=== PATIENT | female | born 1940 | race Caucasian/White ===

== ENCOUNTER 2018-01-02 20:16 | Emergency (ER) | payer MEDICARE, OTHER | END 2018-01-03 00:22 | disposition home or self-care (01) | LOC: FTE 01-03 00:22 | DX: M25.551 Pain in right hip (principal); M79.605 Pain in left leg; M79.604 Pain in right leg; I10 Essential (primary) hypertension; I25.10 Atherosclerotic heart disease of native coronary artery without angina pectoris; Z79.01 Long term (current) use of anticoagulants | CPT/HCPCS: 73502; 73510; 93970; 99284-25 ==

== ENCOUNTER 2018-06-21 09:01 | Emergency (ER) | payer MEDICARE, OTHER ==
[2018-06-21] MEDS: KETOROLAC 30 MG INJ IM (10:49)
== END 2018-06-21 10:58 | disposition home or self-care (01) ==
LOC: E/R 09:01
DX: M25.551 Pain in right hip (principal); M16.11 Unilateral primary osteoarthritis, right hip; S76.211A Strain of adductor muscle, fascia and tendon of right thigh, initial encounter; I10 Essential (primary) hypertension; I25.10 Atherosclerotic heart disease of native coronary artery without angina pectoris; X58.XXXA Exposure to other specified factors, initial encounter; Y92.9 Unspecified place or not applicable; Z79.01 Long term (current) use of anticoagulants; Z79.84 Long term (current) use of oral hypoglycemic drugs
CPT/HCPCS: 96372; 99284-25

== ENCOUNTER 2018-12-20 10:20 | Emergency (ER) | payer MEDICARE, OTHER ==
[2018-12-20] MEDS: HYDROCODONE/APAP (5/325) TAB PO (12:06)
[2018-12-20] MEDS: ONDANSETRON (ODT) 4 MG TAB ODT (12:07)
== END 2018-12-20 13:15 | disposition home or self-care (01) ==
LOC: FTE 10:20
DX: M25.551 Pain in right hip (principal); I10 Essential (primary) hypertension; I25.10 Atherosclerotic heart disease of native coronary artery without angina pectoris; Z79.84 Long term (current) use of oral hypoglycemic drugs
CPT/HCPCS: 73510; 99283-25

== ENCOUNTER 2018-12-22 09:32 | Inpatient (IN) | payer MEDICARE, OTHER ==
[2018-12-22 10:35] LABS: ADD MAN DIFF? NO
[2018-12-22] MEDS: morphine 4 MG/ML VIAL IV (10:35)
[2018-12-22] MEDS: SOD CHLORIDE 0.9% 1,000 ML IV (10:35)
[2018-12-22] MEDS: ONDANSETRON 4 MG INJ IV (10:35)
[2018-12-22 10:37] LABS: WHITE BLOOD COUNT 7.1 10^3/ul (4.8-10.8)
[2018-12-22 10:37] LABS: BASOPHILS % 0.6 % (0.0-2.0); EOSINOPHILS # 0.1 10^3/ul (0.0-0.5); EOSINOPHILS % 0.7 % (0.0-7.0); HEMOGLOBIN 12.3 g/dl (12.0-16.0); LYMPHOCYTES # 1.2 10^3/ul (0.8-2.9); LYMPHOCYTES % 16.8 % (15.0-51.0); MEAN CORPUSCULAR HEMOGLOBIN 30.2 pg (29.0-33.0); MEAN CORPUSCULAR HGB CONC 30.8 g/dl (32.0-37.0); MEAN CORPUSCULAR VOLUME 98.3 fl (82.0-101.0); MEAN PLATELET VOLUME 8.7 fl (7.4-10.4); MONOCYTE # 0.7 10^3/ul (0.3-0.9); MONOCYTES % 10.3 % (0.0-11.0); NEUTROPHILS % 70.8 % (39.0-77.0); PLATELET COUNT 216 10^3/UL (140-415); RED BLOOD COUNT 4.07 10^6/ul (4.20-5.40); RED CELL DISTRIBUTION WIDTH 15.1 % (11.5-14.5)
[2018-12-22 10:56] LABS: ANION GAP 6 (5-13); BLOOD UREA NITROGEN 22 mg/dl (7-20); CALCIUM 9.7 mg/dl (8.4-10.2); CARBON DIOXIDE 29 mmol/L (21-31); CHLORIDE 102 mmol/L (97-110); CREATININE 0.49 mg/dl (0.44-1.00); GLUCOSE 90 mg/dl (70-220); POTASSIUM 4.1 mmol/L (3.5-5.1); SODIUM 137 mmol/L (135-144)
[2018-12-22 10:58] LABS: INR 0.92; PARTIAL THROMBOPLASTIN TIME 35.4 Sec (23.0-35.0); PROTIME 12.5 Sec (11.9-14.9)
[2018-12-22 11:01] LABS: D-DIMER 1538.31 ng/ml (<460)
[2018-12-22 11:07] LABS: TROPONIN-I < 0.012 ng/ml (0.000-0.120)
[2018-12-22] MEDS: SOD CHLORIDE 0.9% 100 ML (12:08)
[2018-12-22] MEDS: HYDROmorphONE 0.5 MG/0.5 ML SYG IV (12:09)
[2018-12-22] MEDS: IOHEXOL 100 ML (12:09)
[2018-12-22] MEDS ORDERED: ONDANSETRON 4 MG INJ IV ×2 (14:30→15:30)
[2018-12-22] MEDS: ACETAMINOPHEN 325 MG TAB PO (14:38)
[2018-12-22] MEDS ORDERED: DOCUSATE SODIUM 100 MG CAP PO (15:30)
[2018-12-22] MEDS ORDERED: morphine 2 MG INJ IV (15:30)
[2018-12-22] MEDS ORDERED: ACETAMINOPHEN 325 MG TAB PO (15:30)
[2018-12-22] MEDS ORDERED: HYDROCODONE/APAP (5/325) TAB PO (15:30)
[2018-12-22] MEDS ORDERED: NITROGLYCERIN (SL) 0.4 MG TAB SL (15:30)
[2018-12-22] MEDS ORDERED: NACL 0.9% 3 ML SYG IV (15:30)
[2018-12-22] MEDS ORDERED: MAGNESIUM HYDROXIDE 30ML CUP PO (15:30)
[2018-12-22 15:37] LABS: HEMOGLOBIN A1C 5.6 % (0-5.9)
[2018-12-22] MEDS ORDERED: DEXTROSE 50% 50 ML SYRINGE IV ×2 (16:30)
[2018-12-22] MEDS ORDERED: GLUCAGON 1 MG INJ IM (16:30)
[2018-12-22] MEDS ORDERED: hydrALAzine 20 MG INJ IV (16:30)
[2018-12-22] MEDS ORDERED: GLUCOSE GEL 15 GRAM TUBE PO ×2 (16:30)
[2018-12-22] MEDS ORDERED: GLUCOSE GEL 15 GRAM TUBE BUCCAL (16:30)
[2018-12-22 17:30] LABS: CREATINE KINASE 57 IU/L (23-200)
[2018-12-22 17:43] LABS: CK INDEX 2.3; TROPONIN-I < 0.012 ng/ml (0.000-0.120)
[2018-12-22] MEDS: FAMOTIDINE 20 MG TAB PO (17:46)
[2018-12-22] MEDS: INSULIN ASPART [NOVOLOG] 3 ML PEN SC ×2 (17:46→21:00)
[2018-12-22] MEDS: HEPARIN 5,000 UNIT/1 ML VIAL SC (21:44)
[2018-12-22 23:01] LABS: CREATINE KINASE 58 IU/L (23-200)
[2018-12-22 23:14] LABS: CK INDEX 2.3; CK-MB 1.34 ng/ml (0.0-2.4); TROPONIN-I < 0.012 ng/ml (0.000-0.120)
[2018-12-23] MEDS: HYDROCODONE/APAP (5/325) TAB PO ×5 (04:39→22:53)
[2018-12-23] MEDS: [UNRECOGNIZED DRUG - REMARK] PO (05:15)
[2018-12-23] MEDS: HEPARIN 5,000 UNIT/1 ML VIAL SC ×2 (05:17→14:00)
[2018-12-23 06:21] LABS: ADD MAN DIFF? NO
[2018-12-23 06:28] LABS: WHITE BLOOD COUNT 5.3 10^3/ul (4.8-10.8)
[2018-12-23 06:28] LABS: BASOPHILS % 0.6 % (0.0-2.0); EOSINOPHILS # 0.1 10^3/ul (0.0-0.5); EOSINOPHILS % 1.1 % (0.0-7.0); HEMOGLOBIN 13.4 g/dl (12.0-16.0); LYMPHOCYTES # 0.9 10^3/ul (0.8-2.9); LYMPHOCYTES % 17.3 % (15.0-51.0); MEAN CORPUSCULAR HEMOGLOBIN 30.6 pg (29.0-33.0); MEAN CORPUSCULAR HGB CONC 31.2 g/dl (32.0-37.0); MEAN CORPUSCULAR VOLUME 98.2 fl (82.0-101.0); MONOCYTE # 0.5 10^3/ul (0.3-0.9); MONOCYTES % 9.7 % (0.0-11.0); NEUTROPHIL # 3.7 10^3/ul (1.6-7.5); NEUTROPHILS % 70.5 % (39.0-77.0); PLATELET COUNT 225 10^3/UL (140-415); RED BLOOD COUNT 4.38 10^6/ul (4.20-5.40); RED CELL DISTRIBUTION WIDTH 14.8 % (11.5-14.5)
[2018-12-23 06:52] LABS: ALANINE AMINOTRANSFERASE 25 IU/L (13-69); ALBUMIN 3.5 g/dl (3.3-4.9); ALBUMIN/GLOBULIN RATIO 1.02; ALKALINE PHOSPHATASE 74 IU/L (42-121); ANION GAP 4 (5-13); ASPARTATE AMINO TRANSFERASE 24 IU/L (15-46); BILIRUBIN,INDIRECT 0.7 mg/dl (0-1.1); BILIRUBIN,TOTAL 0.7 mg/dl (0.2-1.3); BLOOD UREA NITROGEN 14 mg/dl (7-20); CALCIUM 9.6 mg/dl (8.4-10.2); CARBON DIOXIDE 32 mmol/L (21-31); CHLORIDE 102 mmol/L (97-110); CHOL/HDL RATIO 3.7 RATIO; CHOLESTEROL 220 mg/dl (100-200); CREATININE 0.66 mg/dl (0.44-1.00); GLUCOSE 114 mg/dl (70-220); HDL CHOLESTEROL 58 mg/dl (33-92); LDL CHOLESTEROL,CALCULATED 143 mg/dl; MAGNESIUM 2.1 mg/dl (1.7-2.5); SODIUM 138 mmol/L (135-144); TOTAL PROTEIN 6.9 g/dl (6.1-8.1); TRIGLYCERIDES 94 mg/dl (0-149)
[2018-12-23 06:58] LABS: LACTIC ACID 1.5 mmol/L (0.5-2.0)
[2018-12-23] MEDS: INSULIN ASPART [NOVOLOG] 3 ML PEN SC ×4 (07:49→21:00)
[2018-12-23] MEDS: AMLODIPINE 5 MG TAB PO (08:29)
[2018-12-23] MEDS: FAMOTIDINE 20 MG TAB PO (08:29)
[2018-12-23] MEDS: LISINOPRIL 10 MG TAB PO (08:29)
[2018-12-23] MEDS: METOPROLOL (XL) 50 MG TAB PO (08:29)
[2018-12-23] MEDS: BACLOFEN 10 MG TAB PO (17:30)
[2018-12-23] MEDS: BETAMET NA PHOS/AC(6 MG/ML) 5ML INJ IU (20:00)
[2018-12-23] MEDS: BUPIVACAINE 0.5% (SDV) 30 ML INJ INJ (20:00)
[2018-12-24] MEDS: [UNRECOGNIZED DRUG - REMARK] PO (05:58)
[2018-12-24 06:30] LABS: ADD MAN DIFF? NO
[2018-12-24 06:35] LABS: BASOPHILS % 0.6 % (0.0-2.0); EOSINOPHILS # 0.1 10^3/ul (0.0-0.5); HEMATOCRIT 41.7 % (37.0-47.0); LYMPHOCYTES # 1.3 10^3/ul (0.8-2.9); LYMPHOCYTES % 20.5 % (15.0-51.0); MEAN CORPUSCULAR HEMOGLOBIN 30.6 pg (29.0-33.0); MEAN CORPUSCULAR HGB CONC 31.2 g/dl (32.0-37.0); MEAN CORPUSCULAR VOLUME 98.1 fl (82.0-101.0); MEAN PLATELET VOLUME 9.1 fl (7.4-10.4); MONOCYTE # 0.7 10^3/ul (0.3-0.9); MONOCYTES % 10.4 % (0.0-11.0); NEUTROPHIL # 4.1 10^3/ul (1.6-7.5); NEUTROPHILS % 66.5 % (39.0-77.0); PLATELET COUNT 231 10^3/UL (140-415); RED BLOOD COUNT 4.25 10^6/ul (4.20-5.40); RED CELL DISTRIBUTION WIDTH 14.7 % (11.5-14.5)
[2018-12-24 06:35] LABS: WHITE BLOOD COUNT 6.2 10^3/ul (4.8-10.8)
[2018-12-24 07:13] LABS: ALBUMIN 3.4 g/dl (3.3-4.9); ANION GAP 3 (5-13); BLOOD UREA NITROGEN 19 mg/dl (7-20); CALCIUM 9.4 mg/dl (8.4-10.2); CARBON DIOXIDE 30 mmol/L (21-31); CHLORIDE 105 mmol/L (97-110); CREATININE 0.65 mg/dl (0.44-1.00); GLUCOSE 90 mg/dl (70-220); MAGNESIUM 2.2 mg/dl (1.7-2.5); PHOSPHORUS 3.4 mg/dl (2.5-4.9); SODIUM 138 mmol/L (135-144)
[2018-12-24] MEDS: INSULIN ASPART [NOVOLOG] 3 ML PEN SC ×4 (07:55→21:00)
[2018-12-24] MEDS: AMLODIPINE 5 MG TAB PO (08:29)
[2018-12-24] MEDS: METOPROLOL (XL) 50 MG TAB PO (08:29)
[2018-12-24] MEDS: FAMOTIDINE 20 MG TAB PO (08:30)
[2018-12-24] MEDS: LISINOPRIL 10 MG TAB PO (08:30)
[2018-12-24] MEDS: LIDOCAINE 1% (MPF) 5 ML VIAL ×2 (08:56)
[2018-12-24] MEDS: FENTAnyl 50 MCG/ML VIAL (09:49)
[2018-12-24] MEDS: POLYETHYLENE GLYCOL 17 GM PACKET PO (12:50)
[2018-12-24 15:49] LABS: SYN FLD MN % 53.3 &; SYN FLD PMN % 46.7 % (0.0-25.0); SYN FLD WBC 120 /cmm (0-150)
[2018-12-24 16:52] LABS: PATH REVIEW? YES; SYN FLD CLARITY CLOUDY; SYN FLD COLOR RED; SYN FLD CRYSTALS NO CRYSTALS SEEN (None seen)
[2018-12-24 16:52] LABS: SYN FLD SOURCE OTHER
[2018-12-25] MEDS: [UNRECOGNIZED DRUG - REMARK] PO (05:58)
[2018-12-25] MEDS: INSULIN ASPART [NOVOLOG] 3 ML PEN SC ×4 (07:55→20:26)
[2018-12-25] MEDS: LISINOPRIL 10 MG TAB PO (08:38)
[2018-12-25] MEDS: METOPROLOL (XL) 50 MG TAB PO (08:38)
[2018-12-25] MEDS: AMLODIPINE 5 MG TAB PO (08:39)
[2018-12-25] MEDS: FAMOTIDINE 20 MG TAB PO (08:39)
[2018-12-25] MEDS: POLYETHYLENE GLYCOL 17 GM PACKET PO (08:39)
[2018-12-25] MEDS: HYDROCODONE/APAP (5/325) TAB PO ×2 (10:19→21:58)
[2018-12-26] MEDS: [UNRECOGNIZED DRUG - REMARK] PO (06:13)
[2018-12-26] MEDS: INSULIN ASPART [NOVOLOG] 3 ML PEN SC ×2 (07:55→11:15)
[2018-12-26] MEDS: LISINOPRIL 10 MG TAB PO (08:34)
[2018-12-26] MEDS: METOPROLOL (XL) 50 MG TAB PO (08:35)
[2018-12-26] MEDS: FAMOTIDINE 20 MG TAB PO (08:35)
[2018-12-26] MEDS: AMLODIPINE 5 MG TAB PO (08:35)
[2018-12-26] MEDS: POLYETHYLENE GLYCOL 17 GM PACKET PO (08:37)
== END 2018-12-26 16:31 | disposition home or self-care (01) | DRG 554 ==
LOC: E/R 09:32 → TEL 14:51
PROVIDERS: Internal Medicine
PROC: 0S993ZX Drainage of Right Hip Joint, Percutaneous Approach, Diagnostic (ICD-10-PCS; principal; 2018-12-24)
PROC: 3E0U33Z Introduction of Anti-inflammatory into Joints, Percutaneous Approach (ICD-10-PCS; 2018-12-25)
DX: M87.851 Other osteonecrosis, right femur (principal); S73.001A Unspecified subluxation of right hip, initial encounter; E78.5 Hyperlipidemia, unspecified; M16.11 Unilateral primary osteoarthritis, right hip; I10 Essential (primary) hypertension; I25.10 Atherosclerotic heart disease of native coronary artery without angina pectoris; M81.0 Age-related osteoporosis without current pathological fracture; E11.9 Type 2 diabetes mellitus without complications; I72.8 Aneurysm of other specified arteries; G89.29 Other chronic pain; R07.9 Chest pain, unspecified; M25.451 Effusion, right hip; M65.9 Synovitis and tenosynovitis, unspecified; K59.00 Constipation, unspecified; Z96.651 Presence of right artificial knee joint; X58.XXXA Exposure to other specified factors, initial encounter
CPT/HCPCS: 36415; 71045; 71275; 72170; 73030; 73510; 73700; 73721; 77012; 80048; 80053; 80061; 80069; 82550; 82553; 82962; 83036; 83605; 83735; 84484; 85025; 85378; 85610; 85730; 87070; 89060; 93005; 93306; 96361; 96374; 96375; 97116; 97161; 97165; 97530; 97535; 99283-25; 99285-25; G0378